=== PATIENT | female | born 1965 | race Caucasian/White ===

== ENCOUNTER 2018-04-11 18:58 | Emergency (ER) | payer BC ==
[2018-04-11] MEDS ORDERED: Adenosine 6 MG/2 ML VIAL ONE ×2 (19:38)
[2018-04-11] MEDS ORDERED: Metoprolol Tartrate 5 MG/5 ML VIAL ONE (19:42)
[2018-04-11 20:00] LABS: #Basophils 0.2 thou/uL (0.0-0.2); #Eosinphils 0.5 thou/uL (0.0-0.7); #Lymphocytes 5.5 thou/uL (1.20-3.40); #Monocytes 0.7 thou/uL (0.11-0.59); %Basophils 1.4 % (0.0-1.0); %Eosinophils 3.3 % (0.0-10.0); %Lymphocytes 36.6 % (21.0-51.0); %Monocytes 4.8 % (0.0-10.0); %Neutrophils 53.8 % (42.0-75.0); Hemoglobin 15.4 g/dL (12.0-16.0); Mean Corpuscular HGB CONC 35.3 g/dL (32.0-36.0); Mean Corpuscular Hemoglobin 30.4 pg (27.0-31.0); Mean Corpuscular Volume 86.1 fL (78.0-98.0); Mean Platelet Volume 6.9 fL (7.4-10.4); Platelet Count 367 thou/uL (130-400); RBC Distribution Width 12.6 % (11.5-14.5); Red Blood Cell (RBC) Count 5.06 mill/uL (4.20-5.40); White Blood Cell (WBC) Count 14.9 thou/uL (4.8-10.8)
[2018-04-11 20:04] LABS: ALT (SGPT) 16 U/L (8-55); AST (SGOT) 14 U/L (5-34); Albumin 4.3 g/dL (3.5-5.0); Alkaline Phosphatase 55 U/L (40-150); Anion Gap 15 mmol/L (10-20); BUN (Urea Nitrogen) 9 mg/dL (9.8-20.1); Bilirubin, Total 0.3 mg/dL (0.2-1.2); CK (CPK) 95 U/L (29-168); Calc. Creatinine Clearance 0 mL/min (70-130); Calcium 9.8 mg/dL (7.8-10.44); Carbon Dioxide 21 mmol/L (22-29); Chloride 107 mmol/L (98-107); Estimated GFR-MDRD 71; Globulin 3.5 g/dL (2.4-3.5); Glucose 148 mg/dL (70-105); Lipase 50 U/L (8-78); Potassium 3.3 mmol/L (3.5-5.1); Protein, Total 7.8 g/dL (6.0-8.3); Sodium 140 mmol/L (136-145)
--- NOTE | 2018-04-11 20:56 | RAD ---
RADIOGRAPH CHEST 1 VIEW: HISTORY: A 52-year-old female with acute chest pain and supraventricular tachycardia. FINDINGS: There are no air space densities, pulmonary edema, pneumothorax, or cardiomegaly. The lateral costop hrenic angles are sharp. A defibrillation paddle partially obscures the right upper lung zone. IMPRESSION: No acute cardiopulmonary findings. stu [] POS: [facility]
[2018-04-11] MEDS ORDERED: Ketorolac Tromethamine 30 MG/ML VIAL ONE (20:58)
[2018-04-11] MEDS ORDERED: Metoprolol Tartrate 50 MG TAB ONE (20:58)
[2018-04-11] MEDS ORDERED: Potassium Chloride 20 MEQ TAB ONE (20:58)
[2018-04-11] MEDS ORDERED: Prochlorperazine 10 MG/2 ML VIAL ONE (21:38)
[2018-04-11] MEDS ORDERED: diphenhydrAMINE 50 MG/ML VIAL ONE (21:53)
== END 2018-04-11 22:40 | disposition home or self-care (01) ==
LOC: SCSER 18:58
DX: I47.1 Supraventricular tachycardia (principal); E11.9 Type 2 diabetes mellitus without complications; I10 Essential (primary) hypertension; G43.909 Migraine, unspecified, not intractable, without status migrainosus; F41.9 Anxiety disorder, unspecified; Z79.82 Long term (current) use of aspirin; Z79.899 Other long term (current) drug therapy
CPT/HCPCS: 71045; 80053; 82550; 83690; 84484; 85025; 93005; 94760; 96361; 96374; 96375; J0153; J0780; J1200; J1885

== ENCOUNTER 2018-04-16 16:21 | Emergency (ER) | payer BC ==
[2018-04-16] MEDS ORDERED: Ibuprofen 800 MG TAB ONE (16:38)
[2018-04-16] MEDS ORDERED: Acetaminophen 500 MG TAB ONE (16:38)
--- NOTE | 2018-04-16 18:12 | RAD ---
PORTABLE CHEST 04/16/18 PROVIDED CLINICAL HISTORY: Cough and fever. COMPARISON: 04/11/18. The cardiac and mediastinal silhouette is within normal limits. No focal consolidation, pleural fluid or pneumothorax apparent. IMPRESSION: No evidence for an acute cardiopulmonary process. POS: [facility]
[2018-04-16 18:19] LABS: Bilirubin Negative (Negative); Blood, Urine Trace (Negative); Clarity CLEAR (Clear); Glucose, Urine (Dipstick) Negative (Negative); Leukocyte Negative (Negative); Nitrite Negative (Negative); Protein, Urine (Dipstick) Trace mg/dL (Neg-Trace); Urobilinogen 0.2 mg/dL (0.2-1.0)
[2018-04-16 18:21] LABS: Bacteria/HPF None Seen HPF (None Seen); Hyaline Casts/LPF 0-3 HYALINE CAST LPF (0-3 Hyaline); Pathc Cast-AUWi Flag 0.14 (0-2.49); Squamous Epithelial None Seen HPF (0-3); WBC/HPF None Seen HPF (0-3)
== END 2018-04-16 18:35 | disposition home or self-care (01) ==
LOC: ERS 16:21
DX: J10.1 Influenza due to other identified influenza virus with other respiratory manifestations (principal); E11.9 Type 2 diabetes mellitus without complications; I10 Essential (primary) hypertension; F41.9 Anxiety disorder, unspecified; G43.909 Migraine, unspecified, not intractable, without status migrainosus; I47.1 Supraventricular tachycardia; Z79.899 Other long term (current) drug therapy; Z79.51 Long term (current) use of inhaled steroids
CPT/HCPCS: 71045; 81003; 81015; 87804; 96360

== ENCOUNTER 2018-05-27 09:59 | Observation (INO) | payer BC ==
[2018-05-27] MEDS ORDERED: Metoclopramide HCl 10 MG/2 ML VIAL ONE (10:51)
[2018-05-27] MEDS ORDERED: Nitroglycerin 0.4 MG TAB 1 EACH ONE (10:51)
[2018-05-27] MEDS ORDERED: diphenhydrAMINE 50 MG/ML VIAL ONE (10:51)
[2018-05-27 11:09] LABS: #Basophils 0.1 thou/uL (0.0-0.2); #Eosinphils 0.4 thou/uL (0.0-0.7); #Lymphocytes 3.5 thou/uL (1.20-3.40); #Monocytes 0.5 thou/uL (0.11-0.59); #Neutrophils 4.4 thou/uL (1.40-6.50); %Basophils 1.1 % (0.0-1.0); %Eosinophils 4.6 % (0.0-10.0); %Lymphocytes 38.9 % (21.0-51.0); %Monocytes 5.9 % (0.0-10.0); %Neutrophils 49.5 % (42.0-75.0); Hemoglobin 13.7 g/dL (12.0-16.0); Mean Corpuscular HGB CONC 34.5 g/dL (32.0-36.0); Mean Corpuscular Hemoglobin 30.8 pg (27.0-31.0); Mean Corpuscular Volume 89.3 fL (78.0-98.0); Mean Platelet Volume 6.9 fL (7.4-10.4); Platelet Count 365 thou/uL (130-400); RBC Distribution Width 12.4 % (11.5-14.5); Red Blood Cell (RBC) Count 4.45 mill/uL (4.20-5.40); White Blood Cell (WBC) Count 8.9 thou/uL (4.8-10.8)
--- NOTE | 2018-05-27 11:15 | RAD ---
PORTABLE CHEST: Date: 05/27/18 HISTORY: Chest pain. FINDINGS: Lungs are clear. Heart and mediastinum unremarkable. IMPRESSION: No acute findings. POS: [facility]
[2018-05-27 11:29] LABS: ALT (SGPT) 13 U/L (8-55); AST (SGOT) 14 U/L (5-34); Albumin 3.9 g/dL (3.5-5.0); Alkaline Phosphatase 45 U/L (40-150); Anion Gap 14 mmol/L (10-20); BUN (Urea Nitrogen) 7 mg/dL (9.8-20.1); Bilirubin, Total 0.3 mg/dL (0.2-1.2); Calc. Creatinine Clearance 0 mL/min (70-130); Calcium 9.6 mg/dL (7.8-10.44); Carbon Dioxide 20 mmol/L (22-29); Chloride 109 mmol/L (98-107); Estimated GFR-MDRD 80; Globulin 3.1 g/dL (2.4-3.5); Glucose 94 mg/dL (70-105); Potassium 3.6 mmol/L (3.5-5.1); Sodium 139 mmol/L (136-145)
--- NOTE | 2018-05-27 11:51 | CT ---
CT HEAD WITHOUT CONTRAST: Date: 05/27/18 Multiple axial tomograms obtained through the head without IV enhancement. INDICATION: Headache. FINDINGS: Ventricles have normal size and position. No evidence of intracranial hemorrhage. No mass or infarct identified. Sinuses and mastoids appear clear. There is evidence of an old craniotomy defect in the right occipital bone. IMPRESSION: No acute abnormality. POS: [facility]
[2018-05-27 12:02] LABS: Bilirubin Negative (Negative); Blood, Urine Negative (Negative); Clarity CLEAR (Clear); Glucose, Urine (Dipstick) Negative (Negative); Leukocyte Negative (Negative); Nitrite Negative (Negative); Protein, Urine (Dipstick) Negative (Neg-Trace); Specific Gravity, Urine 1.007 (1.002-1.036); Urobilinogen 0.2 mg/dL (0.2-1.0)
[2018-05-27 15:19] LABS: Troponin I Less than 0.010 ng/mL (< 0.028)
[2018-05-27] MEDS ORDERED: Ondansetron ODT 4 MG TAB SL PRN ×2 (16:16→20:53)
[2018-05-27] MEDS ORDERED: Ondansetron PF 4 MG/2 ML Vial IVP PRN ×2 (16:16→20:53)
[2018-05-27 16:53] VITALS: BMI 35.1
[2018-05-27] MEDS ORDERED: Zolpidem Tartrate 5 MG TAB PO PRN (16:59)
[2018-05-27] MEDS ORDERED: Dextrose 5% in Water 1,000 ML IV PRN (17:14)
[2018-05-27] MEDS ORDERED: Insulin Regular 300 UNITS/3 ML VIAL SC PRN (17:14)
[2018-05-27] MEDS ORDERED: cloNIDine 0.1 MG TAB PO PRN (17:14)
[2018-05-27] MEDS ORDERED: Dextrose 50% Abboject 50 ML SYRINGE SLOW IVP PRN (17:14)
[2018-05-27] MEDS ORDERED: Enoxaparin Sodium 40 MG/0.4 ML SYRINGE SC SCH (17:15)
[2018-05-27] MEDS: Ketorolac Tromethamine 30 MG/ML VIAL IVP PRN ×2 (17:34→23:47)
[2018-05-27] MEDS: Acetaminophen 325 MG TAB PO PRN ×2 (17:34→23:46)
[2018-05-27 17:57] LABS: Troponin I Less than 0.010 ng/mL (< 0.028)
[2018-05-27] MEDS: Metoprolol Tartrate 50 MG TAB PO SCH (20:04)
[2018-05-27] MEDS: Morphine 2 MG/ML SYRINGE SLOW IVP PRN (20:09)
[2018-05-27] MEDS ORDERED: Acetaminophen 325 MG TAB PO PRN (20:52)
[2018-05-27] MEDS ORDERED: Nortriptyline HCl 25 MG CAP PO SCH (21:00)
[2018-05-27] MEDS ORDERED: Aspirin 81 mg Enteric Coated Tablet PO SCH (21:00)
[2018-05-27] MEDS ORDERED: Montelukast Sodium 10 mg Tablet PO SCH (21:00)
[2018-05-27] MEDS ORDERED: Topiramate 100 MG TAB PO SCH (21:00)
[2018-05-27] MEDS ORDERED: Fenofibrate Nanocrystallized 145 MG TAB PO SCH (21:00)
--- NOTE | 2018-05-27 23:27 | HP ---
HISTORY OF PRESENT ILLNESS: The patient is a 53-year-old white female, who presented to the emergency room complaining of chest pain, not associated with any shortness of breath or headache. She had previous history of headaches associated with migraines, feel like the headache is a little bit worse. It has been noted that her blood pressure has been slightly elevated. She has been followed by Cardiology for blood pressure issues as recently as well as a recent history of SVT, which was treated with chemical cardioversion in the ER approximately 1 month ago. She has noted some stress in her family. She has no prior history of atherosclerotic coronary artery disease. She does have a history of SVT, as well as previous history of pulmonary emboli. She is not currently maintained on any type of anticoagulation. She was seen and evaluated in the ER. She was noted to be hypertensive, as well as in pain. EKG would not reveal any evidence of acute changes. She was given aspirin, some Reglan, Benadryl as well as nitroglycerin with some relief of her headache. She was still found to be somewhat hypertensive while she was in the ER. She is now being admitted for further evaluation and observation for her chest pain, as well as treatment of her hypertension. It is noted she does have some family stress issues and these have been noted for multiple months now and she feels like they have gotten a little bit worse. She feels like it could be contributing to her headache. Otherwise, no other medical complaints are noted. ALLERGIES: SHE IS ALLERGIC TO BACTRIM, CEFEPIME, LAMOTRIGINE, VANCOMYCIN. CURRENT MEDICATIONS: 1. Zomig. 2. Prozac. 3. Topamax. 4. Losartan. 5. Lopressor. 6. ProAir. PAST MEDICAL HISTORY: Positive for hypertension, migraines, previous history of pulmonary embolism, trigeminal neuralgia, previous history of SVT. PAST SURGICAL HISTORY: She has had a previous history of surgery for trigeminal neuralgia, as well as deviated septum and cholecystectomy. SOCIAL HISTORY: She is . She does not smoke nor she drink alcohol. FAMILY HISTORY: Noncontributory at this time. REVIEW OF SYSTEMS: GI: Negative. : Negative. CARDIOVASCULAR: Positive as above. RESPIRATORY: Otherwise negative. PHYSICAL EXAMINATION: VITAL SIGNS: Her blood pressure currently is 153/76, temperature 98.4, pulse 58, respirations 14, O2 sats 97% on room air. GENERAL: She appears to be somewhat tired, but no acute distress. HEENT: Sclerae and conjunctivae clear. NECK: Supple. Full range of motion. No masses. LUNGS: Clear. HEART: Reveals an irregularly irregular rhythm without murmurs, gallops, or rubs. ABDOMEN: Soft, nontender. Bowel sounds are present and active. No hepatosplenomegaly is noted. There is no evidence of any rebound or guarding otherwise noted. NEUROLOGICAL: She is alert and oriented x3. Cranial nerves 2 through 12 are intact. Motor power, strength testing appears to be normal throughout the upper and lower extremities. LABORATORY DATA: Her hemoglobin is 13.7, hematocrit 39.7, white blood count 8.9. Sodium 139, potassium 3.6, chloride 109, CO2 of 20, BUN 7, creatinine 0.76. Troponin x2 are normal. Urinalysis is clear. Chest x-ray is normal. CT scan of brain is normal. IMPRESSION: This is a 53-year-old female, who presents to the emergency room with complaint of, 1. Substernal chest pain associated with headache, some hypertensive response. 2. Previous history of hypertension. 3. Previous history of pulmonary emboli. 4. History of type 2 diabetes mellitus, well controlled. PLAN: 1. I have examined the patient and explained the need for stress test. She will continue with this. We will get Cardiology consult. She has seen Dr. Jung recently due to her SVT. She reports he is monitoring her blood pressure. 2. We will go and get the stress test. 3. Control headache by IV pain medicine, Toradol or morphine. Job ID: [id number]
[2018-05-28] MEDS: Morphine 2 MG/ML SYRINGE SLOW IVP PRN ×2 (04:41→08:32)
[2018-05-28] MEDS ORDERED: metFORMIN 500 MG TAB PO SCH (08:00)
[2018-05-28] MEDS: Metoprolol Tartrate 50 MG TAB PO SCH ×2 (09:21→11:05)
[2018-05-28] MEDS: FLUoxetine HCl 20 MG CAP PO SCH ×2 (09:21→11:05)
[2018-05-28] MEDS: Losartan 25 MG TAB PO SCH ×2 (09:21→11:05)
[2018-05-28] MEDS ORDERED: ADENOSINE 60 MG/20 ML VIAL ONE (10:19)
[2018-05-28] MEDS ORDERED: cloNIDine 0.1 MG TAB PO PRN (12:11)
[2018-05-28] MEDS ORDERED: Amlodipine 5 MG TAB PO SCH (12:30)
--- NOTE | 2018-05-28 12:37 | PRG ---
DATE OF SERVICE: 05/28/2018 PRIMARY CARE PHYSICIAN: Brien Hua MD SUBJECTIVE: The patient is feeling better. She denies chest pain, shortness of breath, or palpitations. She continues to have on and off headache with a history of migraine and anxiety. She tolerated the stress test with results pending at this time. She is anxious to get home. OBJECTIVE: VITAL SIGNS: Temperature 97.7, pulse is 63, respirations 18, blood pressure 172/89, pulse ox is 95% on room air. GENERAL: She is awake and alert. She does appear uncomfortable, but in no acute distress. She does have some light sensitivity. NECK: Supple. No JVD, adenopathy, or bruit. Full range of motion. HEART: Regular rate and rhythm. LUNGS: Clear. ABDOMEN: Soft. EXTREMITIES: No edema. LABORATORY DATA: Cardiac enzymes are negative x3. Accu-Chek of 149, 115, 168. White blood cell count 8900, hemoglobin and hematocrit of 13.7 and 39.7, platelets of 365. Chest x-ray showed no active disease. Brain CT done for headache showed no active disease. Again results of Cardiolite nuclear stress test is pending. ASSESSMENT AND PLAN: This is a 53-year-old female patient with a history of hypertension, hyperlipidemia, anxiety, migraine headache, presented to the emergency department with chest pain and hypertensive urgency. 1. Chest pain. She ruled out for a myocardial infarction. Awaiting cardiac stress test results. 2. Hypertensive urgency. We will start amlodipine and increase clonidine p.r.n. Continue Lopressor and losartan. 3. Migraine headache. We will continue Prozac, Topamax, and Zomig p.r.n. Hopefully will improve with better control of her blood pressure. 4. Anxiety. Appears to be stable on her Prozac. We will consider p.r.n. benzodiazepines if not better. 5. Disposition. Awaiting results of stress test. If negative, we will discharge home with close followup. If abnormal, we will proceed with Cardiology evaluation. Job ID: [id number]
--- NOTE | 2018-05-28 15:22 | NM ---
RADIONUCLIDE Stress ONLY MYOCARDIAL PERFUSION SCAN WITH CT ATTENUATION CORRECTION AND SPECT IMAGING W ITH LEFT VENTRICULAR WALL MOTION EVALUATION AND EJECTION FRACTION: HISTORY: Chest pain. FINDINGS: Adenosine protocol. Heterogeneous uptake of radiotracer throughout the left ventricular myocardium. No focal perfusion de fect or reversibility. QGS analysis of gated SPECT images estimates left ventricular ejection fraction at 63%. IMPRESSION: 1. Normal Stress only myocardial perfusion scan. 2. Normal LVEF. POS: [facility]
[2018-05-28 15:56] VITALS: BP 165/78; TEMP 97.8
[2018-05-29] MEDS ORDERED: Amlodipine 5 MG TAB PO SCH (09:00)
--- NOTE | 2018-05-30 13:33 | STRESS ---
Acquisition Time: 2018-05-28 09:00:00 Total Exercise Time: 00:04:00 Test Indications: CHEST PAIN Medications: Protocol: ADENOSINE Max HR: 076 BPM 45% of Pred: 168 BPM Max BP: 154/094 mmHG Max Work Load: 1.0 METS RESTING ECG: SINUS BRADYCARDIA AT 59 [address]PM WITH NON-SPECIFIC ST SEGMENT ABNORMALITIES SYMPTOMS: SHORTNESS OF BEATH NORMAL BLOOD PRESSURE RESPONSE ECTOPY: NONE ECG RESPONSE: NO SIGNIFICANT CHANGES INTERPRETATION: AWAIT NUCLEAR IMAGES FOR DEFINITIVE DIAGNOSIS Confirmed by MARIO DAO ([id number]), manager editorial TRENT BRENNAN ([id number]) on 05/30/2018 1:33:27 PM Referred By: Eusebia BORRERO Confirmed By:MARIO DAO
== END 2018-05-28 17:31 | disposition home or self-care (01) ==
LOC: ERS 09:59 → ERHOLD 14:32 → 2SW 15:45
PROVIDERS: ADMIT Family Medicine; ATTEND Family Medicine
DX: R07.2 Precordial pain (principal); I16.0 Hypertensive urgency; G43.909 Migraine, unspecified, not intractable, without status migrainosus; F41.9 Anxiety disorder, unspecified; I47.1 Supraventricular tachycardia; I25.10 Atherosclerotic heart disease of native coronary artery without angina pectoris; G50.0 Trigeminal neuralgia; Z86.711 Personal history of pulmonary embolism; Z88.2 Allergy status to sulfonamides; Z88.1 Allergy status to other antibiotic agents; Z88.8 Allergy status to other drugs, medicaments and biological substances; Z90.49 Acquired absence of other specified parts of digestive tract; Z79.84 Long term (current) use of oral hypoglycemic drugs; Z79.82 Long term (current) use of aspirin; Z79.899 Other long term (current) drug therapy; Z98.890 Other specified postprocedural states
CPT/HCPCS: 36415; 36416; 70450; 71045; 78452; 80053; 81003; 84484; 85025; 87086; 87804; 93005; 93017; 94760; 96361; 96372; 96374; 96375; 96376; A9500; G0378; J0153; J1200; J1650; J1885; J2270; J2765

== ENCOUNTER → 2018-09-28 | Day surgery (SDC) | payer BC ==
[2018-09-27 09:25] VITALS: BMI 34.9
[~2018-09-28] MED LIST: Famotidine/PF 20 mg/2ml Vial ONE; Fentanyl 100 MCG/2 ML VIAL ONE; Isoproterenol 0.2 MG/1 ML AMP ONE; Lidocaine 1% (PF) 30 ML VIAL ONE; Midazolam HCl 2 mg/2 ml Vial ONE; Morphine 4 MG/ML VIAL ONE; PROPOFOL 0 ML ONE; Propofol 1,000 MG/100 ML VIAL IV ONE; Propofol 500 MG/50 ML VIAL ONE
[2018-09-28 11:04] LABS: #Basophils 0.1 thou/uL (0.0-0.2); #Eosinphils 0.3 thou/uL (0.0-0.7); #Lymphocytes 2.2 thou/uL (1.20-3.40); #Monocytes 0.6 thou/uL (0.11-0.59); #Neutrophils 4.3 thou/uL (1.40-6.50); %Basophils 0.8 % (0.0-1.0); %Eosinophils 3.7 % (0.0-10.0); %Lymphocytes 29.5 % (21.0-51.0); %Monocytes 7.7 % (0.0-10.0); %Neutrophils 58.3 % (42.0-75.0); Hemoglobin 13.3 g/dL (12.0-16.0); Mean Corpuscular HGB CONC 34.4 g/dL (32.0-36.0); Mean Corpuscular Volume 87.4 fL (78.0-98.0); Mean Platelet Volume 6.9 fL (7.4-10.4); Platelet Count 284 thou/uL (130-400); RBC Distribution Width 12.7 % (11.5-14.5); Red Blood Cell (RBC) Count 4.44 mill/uL (4.20-5.40); White Blood Cell (WBC) Count 7.4 thou/uL (4.8-10.8)
[2018-09-28 11:09] LABS: INR-International Normal Ratio 0.9; PTT 27.8 SEC (22.9-36.1); Prothrombin Time 12.5 SEC (12.0-14.7)
[2018-09-28 11:36] LABS: Anion Gap 13 mmol/L (10-20); BUN (Urea Nitrogen) 13 mg/dL (9.8-20.1); Calc. Creatinine Clearance 119 mL/min (70-130); Carbon Dioxide 22 mmol/L (22-29); Chloride 109 mmol/L (98-107); Estimated GFR-MDRD 72; Glucose 119 mg/dL (70-105); Potassium 3.3 mmol/L (3.5-5.1); Sodium 141 mmol/L (136-145)
--- NOTE | 2018-09-28 18:20 | OP ---
DATE OF PROCEDURE: 09/28/2018 PROCEDURES PERFORMED: Electrophysiology study and radiofrequency ablation. REASON FOR PROCEDURE: Ms. Godwin is a 53-year-old woman with history of narrow complex tachycardia, adenosine terminated. She has structurally normal heart and probably 60% known significant coronary artery disease in the past. She is here for EP study and ablation procedure. DESCRIPTION OF PROCEDURE: The patient received propofol by Anesthesia specialist. After adequate level of sedation achieved, left and right femoral venous areas were prepped, draped, and anesthetized using subcutaneous lidocaine and under ultrasound guidance, the left and right femoral veins were cannulated on the left side and a 6 and 8-Bulgarian short sheaths were introduced through which a octapolar and decapolar catheters were advanced to the right atrium, right ventricle, His bundle, and CS positions. Pacing mapping and recording were performed in this location. Following findings were noted. Baseline rhythm is sinus rhythm at 585 milliseconds cycle length, DC 164, QRS 104, QT 307, AH 110, and HV 50 milliseconds. The AV Wenckebach cycle length was 320 milliseconds. Retrograde Wenckebach cycle length was 320 milliseconds. Concentric retrograde VA conduction was seen. The dual AV amarjit physiology was not clearly present with about 30 millisecond jump, nevertheless during extrastimuli testing in the atrium induced a narrow complex tachycardia, which had very short VA timing with cycle length of 404 milliseconds. Central to lateral, CS activation was seen, the VA timing was 11 milliseconds only. Ventricular override pacing showed a VA-VA response suggestive of AV reciprocating tachycardia. Burst atrial ventricular pacing with higher rates terminated the arrhythmia. Diagnosis of AVNRT was made and the right femoral vein was accessed with ultrasound guidance and 8-Bulgarian short sheath was introduced and a 4 mm ablation catheter was advanced to the right atrium. 3D map of the right atrium, His bundle, and CS location were obtained. The slow pathway modification was performed admitting slow pathway conduction and inducibility of AV amarjit reentrant tachycardia. With higher atrial pacing cycle length, though we were able to induce transient atrial fibrillation, which stabilized into an atrial flutter, which appears to be typical isthmus dependent in morphology. Post pacing intervals at the proximal CS were close to the tachycardia cycle length, which was about 236 milliseconds. At this point, the ablation catheter was switched to a ThermoCool SFST catheter. Detailed 3D map of the cavotricuspid isthmus was obtained. During proximal CS pacing, we were able to achieve transisthmus block prolonging the transisthmus time from 30 milliseconds to 150 milliseconds. The transisthmus times were longer by the ablation line suggestive of transisthmus block. Burst atrial pacing at this point on and off Isuprel, we were not able to reinduce the atypical atrial flutter or AV amarjit reentrant tachycardia. The transisthmus line was again rechecked, any reconnections reablated. Transient atrial fibrillation was seen, which was though self-terminated. Also with burst atrial pacing, we were seeing transient atrial tachycardia at 400 milliseconds of cycle length, but there was also shortened self-terminated arrhythmia. Total number of ablations delivered were 9. Total duration of ablation was 5 minutes and 53 seconds. At the end of the case, the cine of the left lateral border did not reveal any pericardial effusion. The catheter was pulled back out of the body and sheaths were removed and manual pressure was applied. The patient tolerated the procedure well. No complications noted. CONCLUSION: 1. Inducible AV amarjti reentrant tachycardia. 2. Typical isthmus dependent atrial flutters inducible. 3. Nonsustained atrial fibrillation is also seen with burst atrial pacing. 4. Slow pathway modification eliminated AV amarjit reentrant tachycardia. 5. Cavotricuspid isthmus ablation eliminated atrial flutter. 6. Normal AV amarjit and His bundle and infra-Hisian conduction system is seen pre and post ablation. 7. No evidence of accessory pathway. 8. Normal sinus amarjit function. PLAN: Continue monitoring. Job ID: [id number]
== END ==
LOC: CCL 10:16
PROVIDERS: ATTEND Internal Medicine Cardiovascular Disease
DX: I47.1 Supraventricular tachycardia (principal); I48.91 Unspecified atrial fibrillation; I48.92 Unspecified atrial flutter; I11.0 Hypertensive heart disease with heart failure; I50.30 Unspecified diastolic (congestive) heart failure; M19.90 Unspecified osteoarthritis, unspecified site; Z79.82 Long term (current) use of aspirin; Z79.899 Other long term (current) drug therapy; Z88.1 Allergy status to other antibiotic agents; Z88.8 Allergy status to other drugs, medicaments and biological substances
CPT/HCPCS: 76942; 80048; 85025; 85610; 85730; 92960; 93005; 93010; 93613; 93621; 93623; 93653; 93655; C1730; C1732; C1769; J1644; J2001; J2250; J2270; J2704; J3010; S0028

== ENCOUNTER 2018-10-21 10:13 | Outpatient (CLI) | payer BC ==
--- NOTE | 2018-10-21 11:15 | MMO ---
Bilateral MAMMO Bilat Screen [facility]. CLINICAL HISTORY: Patient is 53 years old and is seen for screening. The patient has the following family history of breast cancer: maternal aunt. The patient has no personal history of cancer. VIEWS: The views performed were: bilateral craniocaudal with tomosynthesis and bilateral mediolateral oblique with tomosynthesis. FILMS COMPARED: The present examination has been compared to prior imaging studies performed at [facility] on 09/13/2012, 11/01/2013, 11/02/2014 and 11/04/2015. MAMMOGRAM FINDINGS: The breasts are heterogeneously dense, which could obscure a lesion on mammography. There are stable benign appearing calcifications seen in both breasts. There are no suspicious masses, suspicious calcifications, or new areas of architectural distortion. IMPRESSION: THERE IS NO MAMMOGRAPHIC EVIDENCE OF MALIGNANCY. A ROUTINE FOLLOW-UP MAMMOGRAM IN 1 YEAR IS RECOMMENDED. THE RESULTS OF THIS EXAM WERE SENT TO THE PATIENT. ACR BI-RADS Category 2 - Benign finding MAMMOGRAPHY NOTE: 1. A negative mammogram report should not delay a biopsy if a dominant of clinically suspicious mass is present. 2. Approximately 10% to 15% of breast cancers are not detected by mammography. 3. Adenosis and dense breasts may obscure an underlying neoplasm. Reported by: AME POLANCO MD Electonically Signed: [id number]
== END 2018-10-21 10:14 | disposition home or self-care (01) ==
LOC: BICMAMMO 10:13
PROVIDERS: ATTEND Physician Assistant Medical
DX: Z12.31 Encounter for screening mammogram for malignant neoplasm of breast (principal); Z80.3 Family history of malignant neoplasm of breast
CPT/HCPCS: 77063; 77067

== ENCOUNTER 2020-02-27 12:34 | Outpatient (CLI) | payer OTHER ==
--- NOTE | 2020-02-27 14:25 | MMO ---
Bilateral MAMMO Bilat Screen [facility]. CLINICAL HISTORY: Patient is 54 years old and is seen for screening. The patient has the following family history of breast cancer: maternal aunt. The patient has no personal history of cancer. VIEWS: The views performed were: bilateral craniocaudal with tomosynthesis and bilateral mediolateral oblique with tomosynthesis. FILMS COMPARED: The present examination has been compared to prior imaging studies performed at [facility] on 11/01/2013, 11/02/2014, 11/04/2015 and 10/21/2018. This study has been interpreted with the assistance of computer-aided detection. MAMMOGRAM FINDINGS: The breasts are heterogeneously dense, which could obscure a lesion on mammography. Benign calcifications are noted bilaterally. There are no suspicious masses, suspicious calcifications, or new areas of architectural distortion. IMPRESSION: THERE IS NO MAMMOGRAPHIC EVIDENCE OF MALIGNANCY. A ROUTINE FOLLOW-UP MAMMOGRAM IN 1 YEAR IS RECOMMENDED. THE RESULTS OF THIS EXAM WERE SENT TO THE PATIENT. ACR BI-RADS Category 2 - Benign finding MAMMOGRAPHY NOTE: 1. A negative mammogram report should not delay a biopsy if a dominant of clinically suspicious mass is present. 2. Approximately 10% to 15% of breast cancers are not detected by mammography. 3. Adenosis and dense breasts may obscure an underlying neoplasm. Reported by: MARIXA THOMAS MD Electonically Signed: [id number]
== END 2020-02-27 12:35 | disposition home or self-care (01) ==
LOC: BICMAMMO 12:34
PROVIDERS: ATTEND Family Medicine
DX: Z12.31 Encounter for screening mammogram for malignant neoplasm of breast (principal); Z80.3 Family history of malignant neoplasm of breast
CPT/HCPCS: 77063; 77067

== ENCOUNTER 2021-04-24 10:38 | Outpatient (CLI) | payer BC ==
[2021-04-24 13:03] LABS: Hemoglobin 13.6 g/dL (12.0-15.5); Mean Corpuscular HGB CONC 33.4 g/dL (32.0-36.0); Mean Corpuscular Hemoglobin 29.6 pg (27.0-33.0); Mean Corpuscular Volume 88.7 fl (81.6-98.3); Mean Platelet Volume 9.6 fl (7.4-10.4); Platelet Count 365 10x3/uL (150-450); RBC Distribution Width 13.4 % (11.5-14.5); Red Blood Cell (RBC) Count 4.59 10x6/uL (3.90-5.03)
[2021-04-24 13:12] LABS: INR-International Normal Ratio 0.9; Prothrombin Time 10.1 sec (9.5-12.1)
[2021-04-24 13:37] LABS: Anion Gap 14 mmol/L (10-20); BUN (Urea Nitrogen) 12 mg/dL (9.8-20.1); Calc. Creatinine Clearance 0 mL/min (70-130); Calcium 9.9 mg/dL (7.8-10.44); Carbon Dioxide 22 mmol/L (22-29); Chloride 107 mmol/L (98-107); Glucose 107 mg/dL (70-105); Potassium 3.9 mmol/L (3.5-5.1); Sodium 139 mmol/L (136-145)
[2021-04-24 13:43] LABS: Bilirubin Neg (Negative); Blood, Urine Negative (Negative); Clarity Clear (Clear); Glucose, Urine (Dipstick) Normal (Negative); Ketone, Urine Negative (Negative); Leukocyte Negative (Negative); Nitrite Negative (Negative); Protein, Urine (Dipstick) Negative (Neg-Trace); Urobilinogen Normal mg/dL (Less than 2)
[2021-04-24 14:16] LABS: Bacteria/HPF Rare-Few HPF (None Seen); Mucous/LPF Rare LPF (<2+); RBC/HPF 0-3 HPF (0-3); Squamous Epithelial 0-3 HPF (0-3); WBC/HPF 0-3 HPF (0-3)
[2021-04-25 00:16] LABS: SARS-CoV-2 PCR by NAA Not Detected (NotDetected)
== END 2021-04-24 10:39 | disposition home or self-care (01) ==
LOC: LABBT 10:38
PROVIDERS: ATTEND Urology
DX: Z01.818 Encounter for other preprocedural examination (principal); N13.2 Hydronephrosis with renal and ureteral calculous obstruction; Z20.822 Contact with and (suspected) exposure to COVID-19
CPT/HCPCS: 80048; 81001; 85027; 85610; 85730; 87086; 93005; 93010; U0003; U0005

== ENCOUNTER 2021-04-25 08:05 | Day surgery (SDC) | payer BC ==
[2021-04-24 12:21] VITALS: BMI 32.4
[2021-04-25] MEDS ORDERED: Iothalamate Meglumine 60% 50 ML VIAL FS ONE (10:13)
[2021-04-25] MEDS ORDERED: B & O ONE (10:13)
[2021-04-25] MEDS ORDERED: Fentanyl 100 MCG/2 ML VIAL ONE (10:17)
[2021-04-25] MEDS ORDERED: Midazolam HCl 2 mg/2 ml Vial ONE ×2 (10:17→10:21)
[2021-04-25] MEDS ORDERED: Levofloxacin 500 mg/D5W 100 ml Premix Bag ONE (10:22)
[2021-04-25] MEDS ORDERED: PROPOFOL 200 MG/20 ML VIAL ONE (10:27)
[2021-04-25] MEDS ORDERED: Ondansetron PF 4 MG/2 ML Vial ONE (10:27)
[2021-04-25] MEDS ORDERED: Ketorolac Tromethamine 30 MG/ML VIAL ONE (10:27)
[2021-04-25] MEDS ORDERED: Lidocaine 1% PF 5 ML VIAL ONE (10:27)
[2021-04-25] MEDS ORDERED: Dexamethasone 20 MG/5 ML VIAL ONE (10:27)
[2021-04-25] MEDS ORDERED: HYDROcodone/Acetaminophen 5/325 mg Tablet ONE (12:40)
== END 2021-04-25 13:23 | disposition home or self-care (01) ==
LOC: SDC 08:05
PROVIDERS: ATTEND Urology
PROC: 0TC48ZZ Extirpation of Matter from Left Kidney Pelvis, Via Natural or Artificial Opening Endoscopic (ICD-10-PCS; principal; 2021-04-25)
PROC: 0TC78ZZ Extirpation of Matter from Left Ureter, Via Natural or Artificial Opening Endoscopic (ICD-10-PCS; principal; 2021-04-25)
PROC: 0T778DZ Dilation of Left Ureter with Intraluminal Device, Via Natural or Artificial Opening Endoscopic (ICD-10-PCS; principal; 2021-04-25)
DX: N13.2 Hydronephrosis with renal and ureteral calculous obstruction (principal); G43.909 Migraine, unspecified, not intractable, without status migrainosus; E11.9 Type 2 diabetes mellitus without complications; I10 Essential (primary) hypertension; Z79.82 Long term (current) use of aspirin; Z79.84 Long term (current) use of oral hypoglycemic drugs; Z79.899 Other long term (current) drug therapy; Z88.2 Allergy status to sulfonamides; Z88.1 Allergy status to other antibiotic agents; Z88.8 Allergy status to other drugs, medicaments and biological substances
CPT/HCPCS: 74420; 82365; 88300; C1713; C2617; J1956; J2250; J3010; Q9961-U8

== ENCOUNTER 2022-01-13 18:48 | Inpatient (IN) | payer BC ==
[2022-01-13] MEDS ORDERED: Nitroglycerin 0.4 MG TAB (25 Tab Bottle) SL PRN (21:30)
[2022-01-13] MEDS ORDERED: Ondansetron PF 4 MG/2 ML Vial IVP PRN (21:30)
[2022-01-13 21:56] LABS: Troponin I 13.278 ng/mL (< 0.028)
[2022-01-13] MEDS: Acetaminophen 325 MG TAB PO PRN (22:16)
[2022-01-13 22:31] LABS: Cardiac Risk 7.3 (Less than 4.5); Cholesterol 225 mg/dl (< 200 Desired); HDL Cholesterol 31 mg/dL (>60 Neg Risk); Triglycerides 558 mg/dL (Less than 150)
[2022-01-13] MEDS ORDERED: Nitroglycerin 2% Ointment 1 INCH/1 GM Packet TOP SCH (23:30)
[2022-01-14] VITALS: BMI 32.2
[2022-01-14 01:28] LABS: Critical Call Chem Troponin I RESULT DECREASING; Troponin I 10.648 ng/mL (< 0.028)
[2022-01-14 04:25] LABS: Anion Gap 14 mmol/L (10-20); BUN (Urea Nitrogen) 11 mg/dL (9.8-20.1); Calc. Creatinine Clearance 124 mL/min (70-130); Calcium 9.6 mg/dL (7.8-10.44); Carbon Dioxide 20 mmol/L (22-29); Chloride 106 mmol/L (98-107); Estimated GFR 100; Glucose 205 mg/dL (70-105); Potassium 3.1 mmol/L (3.5-5.1); Sodium 137 mmol/L (136-145)
[2022-01-14 04:26] LABS: #Basophils 0.1 thou/uL (0.0-0.2); #Eosinphils 0.5 thou/uL (0.0-0.7); #Lymphocytes 3.8 thou/uL (1.20-3.40); #Monocytes 0.7 thou/uL (0.11-0.59); #Neutrophils 7.3 thou/uL (1.40-6.50); %Basophils 0.7 % (0.0-1.0); %Eosinophils 4.3 % (0.0-10.0); %Lymphocytes 30.3 % (21.0-51.0); %Monocytes 5.9 % (0.0-10.0); %Neutrophils 58.9 % (42.0-75.0); Mean Corpuscular HGB CONC 34.8 g/dL (32.0-36.0); Mean Corpuscular Hemoglobin 31.3 pg (27.0-31.0); Mean Corpuscular Volume 89.9 fL (78.0-98.0); Mean Platelet Volume 7.1 fL (7.4-10.4); Platelet Count 313 thou/uL (130-400); Red Blood Cell (RBC) Count 4.48 mill/uL (4.20-5.40); White Blood Cell (WBC) Count 12.4 thou/uL (4.8-10.8)
[2022-01-14] MEDS: Acetaminophen 325 MG TAB PO PRN ×3 (05:51→20:48)
[2022-01-14] MEDS ORDERED: Enoxaparin Sodium 80 MG/0.8 ML SYRINGE SC SCH (06:00)
[2022-01-14] MEDS ORDERED: Nitroglycerin 2% Ointment 1 INCH/1 GM Packet TOP SCH (06:00)
[2022-01-14] MEDS: Losartan 25 MG TAB PO SCH (08:45)
[2022-01-14] MEDS: Oxybutynin 5 MG TAB PO SCH (08:46)
[2022-01-14] MEDS: FLUoxetine HCl 20 MG CAP PO SCH (08:46)
[2022-01-14] MEDS: Aspirin 81 mg Enteric Coated Tablet PO SCH ×2 (08:46→20:49)
[2022-01-14] MEDS ORDERED: Metoprolol Tartrate 50 MG TAB PO SCH (09:00)
[2022-01-14] MEDS ORDERED: Communication Order-Pharmacy FS SCH (10:00)
[2022-01-14] MEDS ORDERED: Iopamidol 370 76% 100 ML VIAL ONE (10:20)
[2022-01-14] MEDS ORDERED: Verapamil 5 MG/2 ML VIAL ONE (11:12)
[2022-01-14] MEDS ORDERED: Nitroglycerin 100MG/250ML BOT 250 ML ONE (11:12)
[2022-01-14] MEDS ORDERED: Adenosine 6 MG/2 ML VIAL ONE (11:12)
[2022-01-14] MEDS ORDERED: Lidocaine 1% PF 5 ML VIAL ONE (11:12)
[2022-01-14] MEDS ORDERED: Heparin 10,000 UNITS/ 10 ML VIAL ONE (11:12)
[2022-01-14] MEDS: Nitroglycerin 2% Ointment 1 INCH/1 GM Packet TOP SCH ×2 (13:54→22:40)
[2022-01-14] MEDS ORDERED: Clopidogrel Bisulfate 300 MG TAB PO SCH (18:00)
[2022-01-14] MEDS: Amlodipine 10 MG TAB PO SCH (20:47)
[2022-01-14] MEDS: Nortriptyline HCl 25 MG CAP PO SCH (20:48)
[2022-01-14] MEDS: Icosapent Ethyl 1 GM CAPSULE PO SCH (20:48)
[2022-01-14] MEDS: Aripiprazole 10 MG TAB PO SCH (20:49)
[2022-01-14] MEDS: Montelukast Sodium 10 mg Tablet PO SCH (20:49)
[2022-01-14] MEDS: Metoprolol Tartrate 50 MG TAB PO SCH (20:49)
[2022-01-14] MEDS ORDERED: Fenofibrate Nanocrystallized 145 MG TAB PO SCH (21:00)
[2022-01-14] MEDS ORDERED: Fioricet 325/50/40 mg Tablet PO PRN (21:44)
[2022-01-14] MEDS: Topiramate 100 MG TAB PO SCH (22:40)
[2022-01-14] MEDS: SUMAtriptan Succinate 50 MG TAB PO PRN (23:13)
[2022-01-15] MEDS: Nitroglycerin 2% Ointment 1 INCH/1 GM Packet TOP SCH (06:02)
[2022-01-15] MEDS: Oxybutynin 5 MG TAB PO SCH (09:16)
[2022-01-15] MEDS: FLUoxetine HCl 20 MG CAP PO SCH (09:16)
[2022-01-15] MEDS: Atorvastatin Calcium 40 MG TAB PO SCH (09:16)
[2022-01-15] MEDS: Losartan 25 MG TAB PO SCH (09:16)
[2022-01-15] MEDS: Icosapent Ethyl 1 GM CAPSULE PO SCH ×2 (09:17→21:30)
[2022-01-15] MEDS: Metoprolol Tartrate 50 MG TAB PO SCH ×2 (09:17→21:31)
[2022-01-15] MEDS: Clopidogrel Bisulfate 75 MG TAB PO SCH (09:17)
[2022-01-15 14:06] LABS: #Basophils 0.1 thou/uL (0.0-0.2); #Eosinphils 0.5 thou/uL (0.0-0.7); #Lymphocytes 3.3 thou/uL (1.20-3.40); #Monocytes 0.9 thou/uL (0.11-0.59); #Neutrophils 8.3 thou/uL (1.40-6.50); %Basophils 0.8 % (0.0-1.0); %Eosinophils 4.1 % (0.0-10.0); %Lymphocytes 25.2 % (21.0-51.0); %Monocytes 6.6 % (0.0-10.0); %Neutrophils 63.4 % (42.0-75.0); Hemoglobin 13.7 g/dL (12.0-16.0); Mean Corpuscular Hemoglobin 31.2 pg (27.0-31.0); Mean Platelet Volume 6.9 fL (7.4-10.4); Platelet Count 269 thou/uL (130-400); Red Blood Cell (RBC) Count 4.38 mill/uL (4.20-5.40); White Blood Cell (WBC) Count 13.1 thou/uL (4.8-10.8)
[2022-01-15 14:19] LABS: Anion Gap 13 mmol/L (10-20); BUN (Urea Nitrogen) 11 mg/dL (9.8-20.1); Calc. Creatinine Clearance 113 mL/min (70-130); Carbon Dioxide 21 mmol/L (22-29); Chloride 105 mmol/L (98-107); Estimated GFR 90; Glucose 192 mg/dL (70-105); Potassium 3.3 mmol/L (3.5-5.1); Sodium 136 mmol/L (136-145)
[2022-01-15] MEDS: SUMAtriptan Succinate 50 MG TAB PO PRN (15:03)
[2022-01-15] MEDS: metFORMIN 500 MG TAB PO SCH (17:30)
[2022-01-15] MEDS: Topiramate 100 MG TAB PO SCH (21:29)
[2022-01-15] MEDS: Aripiprazole 10 MG TAB PO SCH (21:30)
[2022-01-15] MEDS: Montelukast Sodium 10 mg Tablet PO SCH (21:30)
[2022-01-15] MEDS: Amlodipine 10 MG TAB PO SCH (21:30)
[2022-01-15] MEDS: Nortriptyline HCl 25 MG CAP PO SCH (21:31)
[2022-01-15] MEDS: Aspirin 81 mg Enteric Coated Tablet PO SCH (21:31)
[2022-01-15 23:53] VITALS: BP 144/81; TEMP 97.9
[2022-01-16] MEDS: SUMAtriptan Succinate 50 MG TAB PO PRN (00:39)
[2022-01-16] MEDS: Atorvastatin Calcium 40 MG TAB PO SCH (09:07)
[2022-01-16] MEDS: Oxybutynin 5 MG TAB PO SCH (09:07)
[2022-01-16] MEDS: Metoprolol Tartrate 50 MG TAB PO SCH (09:07)
[2022-01-16] MEDS: Losartan 25 MG TAB PO SCH (09:07)
[2022-01-16] MEDS: metFORMIN 500 MG TAB PO SCH (09:07)
[2022-01-16] MEDS: FLUoxetine HCl 20 MG CAP PO SCH (09:07)
[2022-01-16] MEDS: Icosapent Ethyl 1 GM CAPSULE PO SCH (09:07)
[2022-01-16] MEDS: Clopidogrel Bisulfate 75 MG TAB PO SCH (09:08)
== END 2022-01-16 14:00 | disposition home or self-care (01) | DRG 282 ==
LOC: 2NO 19:55
PROVIDERS: ADMIT Internal Medicine; ATTEND Internal Medicine
PROC: 4A023N7 Measurement of Cardiac Sampling and Pressure, Left Heart, Percutaneous Approach (ICD-10-PCS; principal; 2022-01-14)
PROC: B2111ZZ Fluoroscopy of Multiple Coronary Arteries using Low Osmolar Contrast (ICD-10-PCS; 2022-01-14)
PROC: B2151ZZ Fluoroscopy of Left Heart using Low Osmolar Contrast (ICD-10-PCS; 2022-01-14)
DX: I21.4 Non-ST elevation (NSTEMI) myocardial infarction (principal); E11.9 Type 2 diabetes mellitus without complications; I10 Essential (primary) hypertension; E78.5 Hyperlipidemia, unspecified; F41.9 Anxiety disorder, unspecified; F32.A Depression, unspecified; E66.9 Obesity, unspecified; I25.5 Ischemic cardiomyopathy; I25.110 Atherosclerotic heart disease of native coronary artery with unstable angina pectoris; G43.909 Migraine, unspecified, not intractable, without status migrainosus; F17.210 Nicotine dependence, cigarettes, uncomplicated; Z79.899 Other long term (current) drug therapy; Z79.02 Long term (current) use of antithrombotics/antiplatelets; Z88.1 Allergy status to other antibiotic agents; Z88.8 Allergy status to other drugs, medicaments and biological substances; Z88.2 Allergy status to sulfonamides; Z79.82 Long term (current) use of aspirin; Z79.84 Long term (current) use of oral hypoglycemic drugs; Z90.49 Acquired absence of other specified parts of digestive tract; Z82.49 Family history of ischemic heart disease and other diseases of the circulatory system; Z86.711 Personal history of pulmonary embolism; Z68.32 Body mass index [BMI] 32.0-32.9, adult
CPT/HCPCS: 36415; 36416; 80048; 80061; 84484; 85025; 93306; 93458; 97139; C1769; C1894; J0153; J1644; J1650; Q9967

== ENCOUNTER 2024-06-01 15:37 | Outpatient (CLI) | payer BC | END 2024-06-01 15:38 | disposition home or self-care (01) | LOC: BICCT 15:37 | PROVIDERS: ATTEND Family Medicine | DX: Z87.891 Personal history of nicotine dependence (principal) | CPT/HCPCS: 71271 ==